=== PATIENT | male | born 1995 | race Caucasian/White ===

== ENCOUNTER 2017-11-29 22:12 | Emergency (ER) | payer BC, OTHER ==
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
[2017-11-29] MEDS ORDERED: ISOT40CA PO (22:26)
[2017-11-29] MEDS ORDERED: [UNRECOGNIZED DRUG - CODE] (22:26)
[2017-11-29 23:08] VITALS: BP 138/88
[2017-11-29] MEDS ORDERED: CEPH500C24 PO (23:12)
== END 2017-11-29 23:16 | disposition home or self-care (01) ==
LOC: ER 22:27
DX: S01.81XA Laceration without foreign body of other part of head, initial encounter (principal); Y04.2XXA Assault by strike against or bumped into by another person, initial encounter
CPT/HCPCS: 99283